=== PATIENT | male | born 1945 | race African-American/Black ===

== ENCOUNTER 2022-11-20 12:47 | Outpatient (CLI) | payer MEDICARE, SELFPAY ==
--- NOTE | ~2022-11-20 | NM_ITS ---
EXAMINATION: [place] [facility] renal scan DATE: 11/20/2022 14:18 INDICATION: Right hydronephrosis. TECHNIQUE: 7.4 mCi Tc-99m MAG3 was administered IV. 40 mg furosemide was administered IV immediately afterward. The patient was scanned in the supine position. A posterior abdominal radionuclide angiog luis was obtained. A subsequent time course of static images of the kidneys, ureters, and bladder was obtained. COMPARISON: Abdomen radiographs 11/20/2022 FINDINGS: The posterior abdominal radionuclide angiogram and sequential static images show the right kidney to be larger than the left. Peak renal parenchymal uptake was 6 min in right kidney and 3 min in left kidney (normal peak 3-5 minutes). The relative early renal uptake was 57% on the right and 4 3% on the left (<40% is abnormal). No abnormalities of the ureters or bladder are seen. T1/2 for clearance of activity from the right kidney and proximal collecting system was 32 minutes. T1/2 for clearance of activity from the left kidney and proximal collecting system was 17 minutes. Notes on interpretation: T1/2 <10 minutes is normal, 10-15 minutes is low grade obstruction of questi onable clinical significance, 15-20 minutes is partial obstruction that is likely clinically signific ant, >20 minutes is high grade obstruction. Note that false positives may be seen with supine positio wyatt, dehydration, severely dilated nonobstructed kidney, atonic collecting system, poor renal functi on, and chronic furosemide use. IMPRESSION: 1. Symmetric kidney function. 2. Delayed contrast clearance from the kidneys, right worse than left. Given the history of right hy dronephrosis, these findings are consistent with fixed right ureteral obstruction. Given that the yasmany ging abnormality is bilateral, note that decreased kidney function may elevate clearance time. Correl ate with kidney function tests. Reviewed, dictated and finalized at location B. IMPRESSION: 1. Symmetric kidney function. 2. Delayed contrast clearance from the kidneys, right worse than left. Given t he history of right hydronephrosis, these findings are consistent with fixed ri ght ureteral obstruction. Given that the imaging abnormality is bilateral, note that decreased kidney function may elevate clearance time. Correlate with kidn ey function tests.
--- NOTE | ~2022-11-20 | XR_ITS ---
EXAM: XR abdomen/kub 1V DATE: 11/20/2022 13:26 HISTORY: CALCIUM KIDNEY STONE F/U . COMPARISON: None available. FINDINGS: Clear lung bases. Normal bowel gas pattern. No organomegaly. Staghorn calculi seen in the right. Multiple calcifications project over the pelvic ring. Lumbar degenerative disc disease. Mild b ilateral hip osteoarthritis. IMPRESSION: Right staghorn calculus. Pelvic calcifications that may represent phleboliths unless acco mpanied by symptoms of acute renal colic. Reviewed, dictated and finalized at location K. IMPRESSION: Right staghorn calculus. Pelvic calcifications that may represent p hleboliths unless accompanied by symptoms of acute renal colic.
== END 2022-11-20 12:48 | disposition home or self-care (01) ==
PROVIDERS: Visit Provider Urology
DX: N13.2 Hydronephrosis with renal and ureteral calculous obstruction (principal)
CPT/HCPCS: 74018; 78708; A9562; J1940